=== PATIENT | female | born 2000 ===

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

== ENCOUNTER 2021-09-11 11:20 | Inpatient (IN) ==
[2021-09-11] MEDS ORDERED: BETAMETH SODIUM PHOS/ACETATE 30 MG/5 ML VIAL IM ONE (11:52)
[2021-09-11 12:09] LABS: Basophils % 0.5 % (0.0-0.8); Eosinophils # 0.1 10*3/uL (0.0-0.87); Eosinophils % 0.7 % (0.00-10.9); Hematocrit 34.7 VOL% (35.7-47.0); Hemoglobin 11.7 GM/DL (12.0-16.0); Immature Granulocytes % 0.3 %; Immature Granulocytes Absolute 0.02 #; Lymphocytes # 2.4 10*3/uL (1.4-4.0); Lymphocytes % 32.4 % (21.3-54.2); Mean Corpuscular HGB Conc 33.7 GM/DL (32-36); Mean Corpuscular Volume 82.2 FL (87-102); Mean Platelet Volume 10.8 FL (9.6-12.0); Monocytes % 7.1 % (1.7-12.7); Platelet Count 218 T/CUMM (130-400); Red Blood Count 4.22 MC/CUMM (3.8-5.5); Red Cell Distribution Width 13.4 % (9.3-17.3); White Blood Count 7.5 T/CUMM (4-12)
[2021-09-11 12:20] LABS: Bacteria,Urine Occasional /HPF (Few); Bilirubin,Urine Negative (Negative); Blood, Urine Negative (Negative); Glucose,Urine (UA) 50 mg/dL (Negative); Ketones,Urine Negative (Negative); Mucus,Urine Many /LPF (Occasional); Nitrite,Urine Negative (Negative); Protein,Urine >=500 MG/DL; Squamous Epithelial Cell,Urine Many /HPF (0-10); Urine Appearance Slightly Hazy (Clear); Urine Color Amber (Yellow); Urine Specific Gravity 1.018 (1.001-1.035); Urine Urobilinogen < 2.0 EU/DL (<2.0)
[2021-09-11 12:22] LABS: INR 0.9; Partial Thromboplastin Time 30.8 SECS (23.8-32.1)
[2021-09-11 12:25] LABS: Protein/Creatinine Ratio,Urine 1.7 RATIO
[2021-09-11 12:30] LABS: Alanine Aminotransferase 9 U/L (13-56); Albumin 1.8 G/DL (3.4-5.0); Alkaline Phosphatase 119 U/L (45-117); Aspartate Amino Transferase 9 U/L (0-37); Bilirubin,Direct < 0.100 MG/DL (0.0-0.20); Blood Urea Nitrogen 8 MG/DL (7-18); Calcium 8.6 MG/DL (8.5-10.1); Carbon Dioxide 23 MMOL/L (21-32); Estimated Glom Filtration Rate 163 ML/MIN; Glucose 162 MG/DL (74-106); Osmolality,Calculated 278.5 MOS/KG (273-304); Potassium 3.8 MMOL/L (3.5-5.1); Sodium 139 MMOL/L (136-145); Uric Acid 4.5 MG/DL (2.6-6.0)
[2021-09-11] MEDS ORDERED: ceFAZolin 3,000 MG in SYRINGE 1 EACH IV ONE (14:21)
[2021-09-11] MEDS ORDERED: FAMOTIDINE 20 MG/2 ML VIAL IV ONE (14:21)
[2021-09-11] MEDS ORDERED: CITRIC ACID/SODIUM CITRATE 30 ML UDCUP PO ONE (14:21)
[2021-09-11] MEDS ORDERED: LACTATED RINGERS 1,000 ML IV SCH (14:30)
[2021-09-11] MEDS ORDERED: OXYTOCIN 10 UNIT/ML VIAL IM ONE (14:35)
[2021-09-11] MEDS ORDERED: OXYTOCIN/LR 30 UNIT/1,000 ML BAG IV ONE (14:35)
[2021-09-11] MEDS ORDERED: ONDANSETRON 4 MG/2 ML VIAL ONE (15:31)
[2021-09-11] MEDS ORDERED: BUPIVACAINE SPINAL 0.75% 2 ML AMP SPINAL ONE (15:31)
[2021-09-11] MEDS ORDERED: METOCLOPRAMIDE 10 MG/2 ML VIAL ONE (15:31)
[2021-09-11] MEDS ORDERED: KETOROLAC 30 MG/1 ML VIAL ONE (16:04)
[2021-09-11] MEDS ORDERED: GLUCAGON 1 MG VIAL IM PRN ×2 (16:11→16:52)
[2021-09-11] MEDS ORDERED: DEXTROSE 10% 250 ML BAG IV PRN (16:13)
[2021-09-11 16:26] LABS: Bilirubin,Urine Negative (Negative); Blood, Urine Negative (Negative); Glucose,Urine (UA) 50 mg/dL (Negative); Hyaline Casts,Urine 1 /LPF (0-3); Ketones,Urine 5 mg/dL (Negative); Mucus,Urine Few /LPF (Occasional); Nitrite,Urine Negative (Negative); Protein,Urine >=500 MG/DL; RBC,Urine 2 /HPF (0-4); Squamous Epithelial Cell,Urine Occasional /HPF (0-10); Urine Appearance CLEAR (Clear); Urine Color Yellow (Yellow); Urine Specific Gravity 1.017 (1.001-1.035); Urine Urobilinogen < 2.0 EU/DL (<2.0)
[2021-09-11] MEDS ORDERED: FUROSEMIDE 20 MG/2 ML VIAL ONE (16:27)
[2021-09-11 16:34] LABS: Cord Arterial Blood HCO3 27.8 MMOL/L
[2021-09-11 16:36] LABS: Cord Venous Blood HCO3 23.2 MMOL/L; Cord Venous Blood PCO2 55.8 MMHG; Cord Venous Blood PO2 23.4
[2021-09-11] MEDS ORDERED: MAGNESIUM HYDROXIDE SUSP 30 ML UDCUP PO PRN (16:52)
[2021-09-11] MEDS ORDERED: ACETAMINOPHEN 325 MG TABLET PO PRN (16:52)
[2021-09-11] MEDS ORDERED: OXYTOCIN/LR 20 UNIT/1,000 ML BAG IV ONE (16:52)
[2021-09-11] MEDS ORDERED: DEXTROSE 50% 25 GM/50 ML VIAL IV PRN (16:52)
[2021-09-11] MEDS ORDERED: RHO(D) IMMUNE GLOBULIN 300 MCG SYRINGE IM ONE (16:52)
[2021-09-11] MEDS ORDERED: ONDANSETRON 4 MG/2 ML VIAL IV PRN (16:52)
[2021-09-11] MEDS ORDERED: SIMETHICONE CHEW 80 MG TABLET PO PRN (16:52)
[2021-09-11] MEDS ORDERED: INSULIN REGULAR 100 UNIT/ML SUBCUT SCH (20:00)
[2021-09-11] MEDS: DOCUSATE SODIUM 100 MG CAPSULE PO SCH (20:12)
[2021-09-11] MEDS ORDERED: KETOROLAC 30 MG/1 ML VIAL IV PRN (22:30)
[2021-09-11] MEDS: ACETAMINOPHEN 500 MG TABLET PO PRN (22:30)
[2021-09-11] MEDS: KETOROLAC 30 MG/1 ML VIAL IV PRN ×2 (22:30→22:52)
[2021-09-12] MEDS: INSULIN REGULAR 100 UNIT/ML SUBCUT SCH ×2 (00:02→06:25)
[2021-09-12 00:41] LABS: Basophils % 0.1 % (0.0-0.8); Hematocrit 32.6 VOL% (35.7-47.0); Immature Granulocytes % 0.6 %; Immature Granulocytes Absolute 0.06 #; Lymphocytes # 1.7 10*3/uL (1.4-4.0); Lymphocytes % 15.8 % (21.3-54.2); Mean Corpuscular HGB Conc 33.7 GM/DL (32-36); Mean Corpuscular Volume 83.2 FL (87-102); Mean Platelet Volume 10.5 FL (9.6-12.0); Monocytes % 5.7 % (1.7-12.7); Neutrophils % 77.8 % (38.7-73.9); Platelet Count 201 T/CUMM (130-400); Red Blood Count 3.92 MC/CUMM (3.8-5.5); Red Cell Distribution Width 13.3 % (9.3-17.3); White Blood Count 10.6 T/CUMM (4-12)
[2021-09-12] MEDS: LACTATED RINGERS 1,000 ML IV SCH (01:03)
[2021-09-12] MEDS: ACETAMINOPHEN 500 MG TABLET PO PRN (04:45)
[2021-09-12] MEDS: KETOROLAC 30 MG/1 ML VIAL IV SCH ×2 (04:46→10:51)
[2021-09-12 08:38] LABS: Basophils % 0.1 % (0.0-0.8); Hematocrit 34.3 VOL% (35.7-47.0); Hemoglobin 11.5 GM/DL (12.0-16.0); Immature Granulocytes % 0.5 %; Immature Granulocytes Absolute 0.05 #; Lymphocytes # 2.3 10*3/uL (1.4-4.0); Lymphocytes % 21.4 % (21.3-54.2); Mean Corpuscular HGB Conc 33.5 GM/DL (32-36); Mean Corpuscular Volume 82.9 FL (87-102); Mean Platelet Volume 10.2 FL (9.6-12.0); Monocytes % 9.3 % (1.7-12.7); Neutrophils % 68.7 % (38.7-73.9); Platelet Count 213 T/CUMM (130-400); Red Blood Count 4.14 MC/CUMM (3.8-5.5); Red Cell Distribution Width 13.3 % (9.3-17.3); White Blood Count 10.6 T/CUMM (4-12)
[2021-09-12] MEDS: DOCUSATE SODIUM 100 MG CAPSULE PO SCH ×2 (08:49→21:17)
[2021-09-12] MEDS: METOCLOPRAMIDE 10 MG TABLET PO SCH (08:49)
[2021-09-12] MEDS: FUROSEMIDE 40 MG/4 ML VIAL IV SCH ×2 (12:54→18:09)
[2021-09-12] MEDS: MULTIVITAMIN (PRENATAL) TABLET PO SCH (18:10)
[2021-09-13] MEDS: METOCLOPRAMIDE 10 MG TABLET PO SCH ×2 (00:39→09:29)
[2021-09-13] MEDS: INSULIN REGULAR 100 UNIT/ML SUBCUT SCH (06:26)
[2021-09-13] MEDS: IBUPROFEN 800 MG TABLET PO PRN ×2 (06:26→15:23)
[2021-09-13] MEDS: MULTIVITAMIN (PRENATAL) TABLET PO SCH (09:29)
[2021-09-13] MEDS: DOCUSATE SODIUM 100 MG CAPSULE PO SCH (09:29)
[2021-09-13 13:30] VITALS: BP 138/92
== END 2021-09-13 16:20 | disposition home or self-care (01) | DRG 540 ==
LOC: N.LDOUT 11:20 → N.LD 11:23 → N.OB 20:51
PROVIDERS: ADMIT Obstetrics & Gynecology; ATTEND Obstetrics & Gynecology
PROC: LDCSECT (ICD-10-PCS; 2021-09-11 15:00)